=== PATIENT | female | born 1985 | race Two or more races ===

== ENCOUNTER 2021-03-11 00:08 | Inpatient (IN) | payer SELFPAY ==
[~2021-03-11] VITALS: Ht 172.7 cm; Wt 80.4 kg
[~2021-03-11 00:08] MED LIST: ACET325T14 PO; AZIT250T89 PO; IBUP-1222 PO; IBUP-1223 PO; IPRA3AMP30 NPPB; NITR100C56 PO; PREN1TAB52 PO; VICODIN PO
[2021-03-11 14:00] VITALS: BP 115/74
[2021-03-11] MEDS ORDERED: LACTATED RINGERS 1,000 ML IV SCH ×2 (14:00→19:00)
[2021-03-11] MEDS ORDERED: FENTANYL PF 100 MCG/2ML IVPush PRN (14:00)
[2021-03-11] MEDS ORDERED: ONDANSETRON 2MG/ML, 2ML IVPush PRN (14:00)
[2021-03-11] MEDS ORDERED: TERBUTALINE 1 MG/ML, 1ML IVPush PRN (14:00)
[2021-03-11] MEDS ORDERED: TERBUTALINE 1 MG/ML, 1ML SQ PRN (14:00)
[2021-03-11] MEDS ORDERED: OXYTOCIN 30U/ 0.9% NaCL 500ML 500 ML IV PRN (14:00)
[2021-03-11] MEDS ORDERED: FENTANYL PF 100 MCG/2ML IV PRN (14:00)
[2021-03-11] MEDS ORDERED: OXYTOCIN 30U/ 0.9% NaCL 500ML 500 ML IV ONE (14:00)
[2021-03-11] MEDS ORDERED: MISOPROSTOL 25 MCG TABLET VG PRN (14:00)
[2021-03-11] MEDS ORDERED: NEWBORN KIT ONE (14:14)
[2021-03-11 14:19] LABS: BASOPHILS % (AUTO) 1 % (0-1); EOSINOPHILS % (AUTO) 2 % (1-7); LYMPHOCYTES % (AUTO) 34 % (22-44); MEAN CORPUSCULAR HEMOGLOBIN 31.7 pg (27.0-34.8); MEAN CORPUSCULAR HGB CONC 34.5 g/dL (32.4-35.8); MEAN PLATELET VOLUME 7.8 fL (7.4-10.4); MONOCYTES % (AUTO) 7 % (2-9); NEUTROPHILS % (AUTO) 56 % (42-75); PLATELET COUNT 300 x10^3/uL (130-400); RED BLOOD COUNT 4.49 x10^6/uL (3.82-5.3)
[2021-03-11] MEDS ORDERED: EPHEDRINE 50 MG/ML, 1ML IVPush PRN (19:00)
[2021-03-11] MEDS ORDERED: LACTATED RINGERS 1,000 ML IVBOLUS PRN (19:00)
[2021-03-11] MEDS ORDERED: NALOXONE 0.4 MG/ML, 1ML IVPush PRN (19:00)
[2021-03-11] MEDS ORDERED: FENTANYL/BUPIV./NS/PF 250 ML EPIDCONT SCH (19:00)
[2021-03-11] MEDS ORDERED: FENTANYL/BUPIV./NS/PF 250 ML EPIDCONT ONE (19:02)
[2021-03-11] MEDS ORDERED: BUPIVACAINE 0.25% ONE (19:03)
[2021-03-11] MEDS ORDERED: ACETAMINOPHEN 325 MG TABLET PO PRN (20:30)
[2021-03-11] MEDS ORDERED: IBUPROFEN 600 MG TABLET PO PRN (20:30)
[2021-03-11] MEDS ORDERED: METHYLERGONOVINE 0.2 MG/ML IM PRN (20:30)
[2021-03-11] MEDS ORDERED: SIMETHICONE 80 MG CHEW TAB PO PRN (20:30)
[2021-03-11] MEDS ORDERED: DOCUSATE 100 MG CAPSULE PO PRN (20:30)
[2021-03-11] MEDS ORDERED: MISOPROSTOL 200 MCG TABLET PR PRN (20:30)
[2021-03-11] MEDS ORDERED: OXYcodone/APAP 5/325MG TABLET PO PRN (20:30)
[2021-03-11] MEDS ORDERED: OXYcodone IR 5MG TABLET PO PRN (20:30)
[2021-03-11] MEDS ORDERED: CARBOPROST TROMETHAMINE 250 MCG/ML, 1ML IM PRN (20:30)
[2021-03-11] MEDS: OXYTOCIN 30U/ 0.9% NaCL 500ML 500 ML IV SCH (21:30)
[2021-03-11 23:00] VITALS: BP 111/77
[2021-03-12 04:00] VITALS: BP 96/60
[2021-03-12 05:25] LABS: BASOPHILS % (AUTO) 0 % (0-1); EOSINOPHILS % (AUTO) 1 % (1-7); LYMPHOCYTES % (AUTO) 23 % (22-44); MEAN PLATELET VOLUME 7.6 fL (7.4-10.4); MONOCYTES % (AUTO) 7 % (2-9); NEUTROPHILS % (AUTO) 69 % (42-75); PLATELET COUNT 246 x10^3/uL (130-400); RED BLOOD COUNT 4.19 x10^6/uL (3.82-5.3); RED CELL DISTRIBUTION WIDTH 13.2 % (9.6-15.2)
[2021-03-12] MEDS: OXYTOCIN 30U/ 0.9% NaCL 500ML 500 ML IV SCH ×2 (06:30→16:30)
[2021-03-12 07:38] VITALS: BP 112/75
[2021-03-12] MEDS ORDERED: PRENATAL VIT/IRON/FA 1 EACH TABLET PO SCH (09:00)
[2021-03-12 13:30] VITALS: BP 112/70
[2021-03-12 16:24] VITALS: BP 111/77
== END 2021-03-12 17:45 | disposition home or self-care (01) | DRG 807 ==
LOC: LDIP 13:52 → 2NW 22:35
PROVIDERS: ADMIT Obstetrics & Gynecology; ATTEND Obstetrics & Gynecology
PROC: 10E0XZZ Delivery of Products of Conception, External Approach (ICD-10-PCS; principal; 2021-03-11)
PROC: 0HQ9XZZ Repair Perineum Skin, External Approach (ICD-10-PCS; 2021-03-11)
PROC: 3E0R3BZ Introduction of Anesthetic Agent into Spinal Canal, Percutaneous Approach (ICD-10-PCS; 2021-03-11)
PROC: 00HU33Z Insertion of Infusion Device into Spinal Canal, Percutaneous Approach (ICD-10-PCS; 2021-03-11)
DX: O70.0 First degree perineal laceration during delivery (principal); Z37.0 Single live birth; Z3A.39 39 weeks gestation of pregnancy; Z20.822 Contact with and (suspected) exposure to COVID-19
CPT/HCPCS: 36415; 85025; 86592; 86850; 86900; 87635; G0378; J3010; J2590; J7120